=== PATIENT | female | born 1985 | race Caucasian/White ===

== ENCOUNTER 2018-09-21 15:56 | Emergency (ER) | payer OTHER ==
[2018-09-21 16:14] VITALS: RESP 16
[2018-09-21] MEDS ORDERED: SODIUM CHLORIDE 0.9% 1,000 ML IV STA (16:31)
[2018-09-21 16:55] LABS: Basophils % (A) 0 %; Eosinophils # (A) 0.2 k/uL (0-0.7); Eosinophils % (A) 2 %; HCT 43.6 % (34.0-46.0); HGB 15.1 gm/dL (11.4-16.0); Lymphocytes # (A) 0.3 k/uL (1.0-4.8); Lymphocytes % (A) 4 %; MCH 30.2 pg (25.0-35.0); MCHC 34.5 g/dL (31.0-37.0); MCV 87.4 fL (80.0-100.0); Mean Platelet Volume 7.8; Monocytes # (A) 0.2 k/uL (0-1.0); Monocytes % (A) 2 %; Neutrophils # (A) 8.4 k/uL (1.3-7.7); Neutrophils % (A) 91 %; Platelet Count 210 k/uL (150-450); RBC 4.99 m/uL (3.80-5.40); RDW 12.9 % (11.5-15.5); WBC 9.1 k/uL (3.8-10.6)
[2018-09-21 17:07] LABS: Appearance,Urine Cloudy (Clear); Bilirubin,Urine Negative (Negative); Blood,Urine Negative (Negative); Color,Urine Yellow; Glucose,Urine (UA) Negative (Negative); Hyaline Casts,Urine 1 /lpf (0-2); Ketones,Urine 4+ (Negative); Leukocyte Esterase,Urine Negative (Negative); Mucus,Urine Many /hpf; Nitrite,Urine Negative (Negative); Protein,Urine 1+ (Negative); RBC,Urine 4 /hpf (0-5); Specific Gravity,Urine 1.033 (1.001-1.035); Squamous Epithelial Cell,Urine 5 /hpf (0-4)
[2018-09-21 17:09] LABS: ALT 29 U/L (9-52); AST 30 U/L (14-36); Albumin 4.6 g/dL (3.5-5.0); Alkaline Phosphatase 56 U/L (38-126); Amylase 59 U/L (30-110); Anion Gap 12 mmol/L; Blood Urea Nitrogen 11 mg/dL (7-17); Calcium 9.8 mg/dL (8.4-10.2); Carbon Dioxide 23 mmol/L (22-30); Chloride 102 mmol/L (98-107); Glucose 100 mg/dL (74-99); Lipase 49 U/L (23-300); Sodium 137 mmol/L (137-145); Total Bilirubin 0.6 mg/dL (0.2-1.3); Total Protein 8.1 g/dL (6.3-8.2)
[2018-09-21] MEDS ORDERED: ACETAMINOPHEN TAB 500 MG TAB PO STA (17:11)
[2018-09-21] MEDS ORDERED: METOCLOPRAMIDE 5 MG/ML 2 ML VIAL IVP STA (17:12)
[2018-09-21] MEDS ORDERED: diphenhydrAMINE 50 MG/ML 1 ML VIAL IVP STA (17:12)
[2018-09-21 17:15] LABS: Potassium 4.2 mmol/L (3.5-5.1)
--- NOTE | 2018-09-21 17:16 | ED ---
Nausea/Vomiting/Diarrhea HPI - General Chief complaint: Nausea/Vomiting/Diarrhea Stated complaint: Vomiting, lightheaded Time Seen by Provider: 09/21/18 16:19 Source: patient, RN notes reviewed, old records reviewed Mode of arrival: ambulatory Limitations: no limitations - History of Present Illness Initial comments: Patient is a 33-year-old female who presents emergency Department today with complaints of nausea vomiting diarrhea for the past day. She was a low-grade fever. Her daughter has similar complaints. Patient has had a positive test the Patient wishes she is 9 weeks . She is supposed follow-up with Dr. Castro but has not followed up with him at this time. She denies any vaginal bleeding or discharge. She complains of some intermittent right lower quadrant pain prior to vomiting and diarrhea. Patient states that she's had no bloody emesis or stools. She denies a significant surgical history. - Related Data Home Medications Medication Instructions Recorded Confirmed Pnv,Calcium 72/Iron/Folic Acid 1 tab PO DAILY 09/09/15 09/21/18 [ Plus Tablet] Acetaminophen Tab [Tylenol Tab] 650 mg PO Q6H PRN 09/21/18 09/21/18 Previous Rx's Medication Instructions Recorded Metoclopramide [Reglan] 5 mg PO ACHS #15 tab 09/21/18 Allergies Allergy/AdvReac Type Severity Reaction Status Date / Time diphenhydramine HCl Allergy Swelling Verified 09/21/18 16:46 [From Benadryl] Review of Systems ROS Statement: Those systems with pertinent positive or pertinent negative responses have been documented in the HPI. ROS Other: All systems not noted in ROS Statement are negative. Past Medical History Additional Past Medical History / Comment(s): Cyst R ovary, hemangioma on tongue History of Any Multi-Drug Resistant Organisms: None Reported Additional Past Surgical History / Comment(s): Embroylization 03/2012, and 5 other times for tongue hemangioma Past Anesthesia/Blood Transfusion Reactions: No Reported Reaction Past Psychological History: Anxiety, Depression Smoking Status: Never smoker Past Alcohol Use History: None Reported Past Drug Use History: None Reported, Opiates - Past Family History Mother History Unknown: Yes Family Medical History: Cancer Additional Family Medical History / Comment(s): uterine cancer General Exam - General Exam Comments Initial Comments: Well appearing 33 year old female, no distress. Limitations: no limitations General appearance: alert, in no apparent distress Head exam: Present: atraumatic, normocephalic, normal inspection Eye exam: Present: normal appearance, PERRL, EOMI. Absent: scleral icterus, conjunctival injection, periorbital swelling ENT exam: Present: normal exam, mucous membranes moist Neck exam: Present: normal inspection. Absent: tenderness, meningismus, lymphadenopathy Respiratory exam: Present: normal lung sounds bilaterally. Absent: respiratory distress, wheezes, rales, rhonchi, stridor Cardiovascular Exam: Present: regular rate, normal rhythm, normal heart sounds. Absent: systolic murmur, diastolic murmur, rubs, gallop, clicks GI/Abdominal exam: Present: soft, normal bowel sounds. Absent: distended, tenderness, guarding, rebound, rigid Extremities exam: Present: normal inspection, full ROM, normal capillary refill. Absent: tenderness, pedal edema, joint swelling, calf tenderness Back exam: Present: normal inspection Neurological exam: Present: alert, oriented X3, CN II-XII intact Psychiatric exam: Present: normal affect, normal mood Skin exam: Present: warm, dry, intact, normal color. Absent: rash Course Vital Signs 09/21/18 09/21/18 09/21/18 16:11 16:39 18:30 Temperature 99.1 F 100.7 F H 98.9 F Pulse Rate 103 H 83 Respiratory 16 16 Rate Blood Pressure 98/57 94/62 O2 Sat by Pulse 97 99 Oximetry 09/21/18 18:56 Temperature 98.5 F Pulse Rate 92 Respiratory 16 Rate Blood Pressure 95/53 O2 Sat by Pulse 97 Oximetry Medical Decision Making - Medical Decision Making 33 year old female with one day of nausae, vomiting, and diarrhea. Patient is 9 weeks with mild RLQ pain. Patient has low grade fever. Daughter with similiar symptoms. Labs were completed and she was given IV reglan and fluids. Patient labs were unermarkble. UA shows ketones with dehydration. Patient US shows viable IUP, no vaginal bleeding. No signs of appendicitis. Patient will be DC with Rx for reglan. Discussed remaining hydrated. - Lab Data Result diagrams: 09/21/18 16:40 09/21/18 16:40 Lab Results 09/21/18 09/21/18 09/21/18 Range/Units 16:40 16:40 16:40 WBC 9.1 (3.8-10.6) k/uL RBC 4.99 (3.80-5.40) m/uL Hgb 15.1 (11.4-16.0) gm/dL Hct 43.6 (34.0-46.0) % MCV 87.4 (80.0-100.0) fL MCH 30.2 (25.0-35.0) pg MCHC 34.5 (31.0-37.0) g/dL RDW 12.9 (11.5-15.5) % Plt Count 210 (150-450) k/uL Neutrophils % 91 % Lymphocytes % 4 % Monocytes % 2 % Eosinophils % 2 % Basophils % 0 % Neutrophils # 8.4 H (1.3-7.7) k/uL Lymphocytes # 0.3 L (1.0-4.8) k/uL Monocytes # 0.2 (0-1.0) k/uL Eosinophils # 0.2 (0-0.7) k/uL Basophils # 0.0 (0-0.2) k/uL Sodium 137 (137-145) mmol/L Potassium 4.2 (3.5-5.1) mmol/L Chloride 102 (98-107) mmol/L Carbon Dioxide 23 (22-30) mmol/L Anion Gap 12 mmol/L BUN 11 (7-17) mg/dL Creatinine 0.48 L (0.52-1.04) mg/dL Est GFR (CKD-EPI)AfAm >90 (>60 ml/min/1.73 sqM) Est GFR (CKD-EPI)NonAf >90 (>60 ml/min/1.73 sqM) Glucose 100 H (74-99) mg/dL Calcium 9.8 (8.4-10.2) mg/dL Total Bilirubin 0.6 (0.2-1.3) mg/dL AST 30 (14-36) U/L ALT 29 (9-52) U/L Alkaline Phosphatase 56 (38-126) U/L Total Protein 8.1 (6.3-8.2) g/dL Albumin 4.6 (3.5-5.0) g/dL Amylase 59 (30-110) U/L Lipase 49 (23-300) U/L HCG, Quant mIU/mL Urine Color Urine Appearance (Clear) Urine pH (5.0-8.0) Ur Specific [place] (1.001-1.035) Urine Protein (Negative) Urine Glucose (UA) (Negative) Urine Ketones (Negative) Urine Blood (Negative) Urine Nitrite (Negative) Urine Bilirubin (Negative) Urine Urobilinogen (<2.0) mg/dL Ur Leukocyte Esterase (Negative) Urine RBC (0-5) /hpf Urine WBC (0-5) /hpf Ur Squamous Epith Cells (0-4) /hpf Hyaline Casts (0-2) /lpf Urine Mucus (None) /hpf Influenza Type A RNA Not Detected (Not Detectd) Influenza Type B (PCR) Not Detected (Not Detectd) Blood Type Blood Type Recheck 09/21/18 09/21/18 09/21/18 Range/Units 16:40 16:40 17:25 WBC (3.8-10.6) k/uL RBC (3.80-5.40) m/uL Hgb (11.4-16.0) gm/dL Hct (34.0-46.0) % MCV (80.0-100.0) fL MCH (25.0-35.0) pg MCHC (31.0-37.0) g/dL RDW (11.5-15.5) % Plt Count (150-450) k/uL Neutrophils % % Lymphocytes % % Monocytes % % Eosinophils % % Basophils % % Neutrophils # (1.3-7.7) k/uL Lymphocytes # (1.0-4.8) k/uL Monocytes # (0-1.0) k/uL Eosinophils # (0-0.7) k/uL Basophils # (0-0.2) k/uL Sodium (137-145) mmol/L Potassium (3.5-5.1) mmol/L Chloride (98-107) mmol/L Carbon Dioxide (22-30) mmol/L Anion Gap mmol/L BUN (7-17) mg/dL Creatinine (0.52-1.04) mg/dL Est GFR (CKD-EPI)AfAm (>60 ml/min/1.73 sqM) Est GFR (CKD-EPI)NonAf (>60 ml/min/1.73 sqM) Glucose (74-99) mg/dL Calcium (8.4-10.2) mg/dL Total Bilirubin (0.2-1.3) mg/dL AST (14-36) U/L ALT (9-52) U/L Alkaline Phosphatase (38-126) U/L Total Protein (6.3-8.2) g/dL Albumin (3.5-5.0) g/dL Amylase (30-110) U/L Lipase (23-300) U/L HCG, Quant 462869.0 mIU/mL Urine Color Yellow Urine Appearance Cloudy H (Clear) Urine pH 6.0 (5.0-8.0) Ur Specific [place] 1.033 (1.001-1.035) Urine Protein 1+ H (Negative) Urine Glucose (UA) Negative (Negative) Urine Ketones 4+ H (Negative) Urine Blood Negative (Negative) Urine Nitrite Negative (Negative) Urine Bilirubin Negative (Negative) Urine Urobilinogen 2.0 (<2.0) mg/dL Ur Leukocyte Esterase Negative (Negative) Urine RBC 4 (0-5) /hpf Urine WBC 3 (0-5) /hpf Ur Squamous Epith Cells 5 H (0-4) /hpf Hyaline Casts 1 (0-2) /lpf Urine Mucus Many H (None) /hpf Influenza Type A RNA (Not Detectd) Influenza Type B (PCR) (Not Detectd) Blood Type O Positive Blood Type Recheck [facility] ONLY - Radiology Data Radiology results: report reviewed Getting process seen on OB ultrasound. Viable IUP with heart rate of 170 beats were minute. Probable corpus luteal cyst in the right ovary measuring 1.6 x 1.3. No appendix seen. No cystic or solid mass identified. Disposition Clinical Impression: Gastroenteritis, 10 weeks gestation of , Dehydration Disposition: HOME SELF-CARE Condition: Good Instructions (If sedation given, give patient instructions): Gastroenteritis (ED), Acute Nausea and Vomiting (ED) Additional Instructions: Patient advised use nausea medicine and take Tylenol for fevers. Patient should have close follow-up with primary care provider and REEL WINDER. Return to emergency department if any alarming signs or symptoms occur. Prescriptions: Metoclopramide [Reglan] 5 mg PO ACHS #15 tab Is patient prescribed a controlled substance at d/c from ED?: No Referrals: None,Stated [Primary Care Provider] - 1-2 days Diana Bennett MD [STAFF PHYSICIAN] - 1-2 days Time of Disposition: 18:40
--- NOTE | 2018-09-21 18:17 | US ---
EXAMINATION TYPE: US abdomen APPY DATE OF EXAM: 09/21/2018 COMPARISON: NONE CLINICAL HISTORY: Pain. RLQ pain APPENDIX AP Diameter (normal < 6mm): Not visualized Measured outer wall to outer wall. Is the appendix seen in its entirety from the proximal cecum to distal end: No. The appendix is not visualized on this exam. There is a moderate amount of peristalsing bowel visualized in the right low er quadrant that limits the exam IMPRESSION: Appendix not seen. No solid or cystic mass identified. No free fluid.
--- NOTE | 2018-09-21 18:19 | US ---
EXAMINATION TYPE: Transabdominal DATE OF EXAM: 09/21/2018 5:51 PM COMPARISON: NONE CLINICAL HISTORY: Pain. RLQ pain EXAM PERFORMED: Transabdominal (TA) EXAM MEASUREMENTS: GESTATIONAL AGE / DATING Physician Established: Not yet established Dates by LMP: (10 weeks/1 days) EDC: 04/18/2019 Dates by First Scan: No previous this is first scan Dates by Current Scan for: (10 weeks/0 days) EDC: 04/19/2019 MATERNAL ANATOMY Uterus: 9.9 x 7.8 x 8.5 cm Right Ovary: 2.9 x 1.9 x 2.4 cm Left Ovary: 2.3 x 1.1 x 2.0 cm Post CDS / Adnexa: wnl as visualized. Moderate amount of peristalsing bowel visualized bilaterally Presence of free fluid: No Presence of corpus luteal cyst: yes, right ovary measuring 1.6 x 1.3 x 2.4 cm Presence of subchorionic bleed: No GESTATION / SURVEY CRL: 3.1 cm (10 weeks/0 days) Yolk Sac (normal less than 6mm): 5 mm Heart Rate: 178 bpm Rhythm: Upper limits of normal IUP: Viable IUP Date of LMP: 07/12/2018 Beta HcG (if available): Not available at this time Viable IUP, measurements consistent with dates. Probable corpus luteal cyst right ovary measuring 1.6 x 1.3 x 2.4 cm IMPRESSION: No complicating process seen.
[2018-09-21 18:57] VITALS: BP 95/53; PULSE 92; TEMP 98.5
== END 2018-09-21 18:56 | disposition home or self-care (01) ==
LOC: EC 15:56
DX: O99.611 Diseases of the digestive system complicating pregnancy, first trimester (principal); K52.9 Noninfective gastroenteritis and colitis, unspecified; Z87.448 Personal history of other diseases of urinary system; Z53.8 Procedure and treatment not carried out for other reasons; Z88.8 Allergy status to other drugs, medicaments and biological substances; Z3A.10 10 weeks gestation of pregnancy
CPT/HCPCS: 36415; 86900; 86901; 80053; 82150; 83690; 85025; 81001; 84702; 87502; 76705; 76801; 99284; 96374; 96361; J2765

== ENCOUNTER 2019-03-28 12:07 | Outpatient (CLI) | payer OTHER ==
[2019-03-28 12:23] VITALS: BP 120/72; PULSE 93; RESP 18; TEMP 97.6
--- NOTE | 2019-03-28 13:32 | US ---
EXAMINATION TYPE: US OB BPP wo non-stress DATE OF EXAM: 03/28/2019 COMPARISON: NONE CLINICAL HISTORY: Physician order. BBP BREE EXAM PERFORMED: Transabdominal (TA) BPP PARAMETERS: PRESENTATION: Vertex LIE: Longitudinal?? HEART RATE: 140 bpm RHYTHM: Normal BREE: 9.9cm DIAPHRAGM IMAGED: Yes BPP SCORIN. Breathin (1 episode of breathing of 30 second duration in 30 minutes of scanning time) 2. Movement: 2 (at least 3 discrete body movements in 30 minutes) 3. Tone: 2 (1 episode of active flexion/extension of limb) 4. BREE: 2 (BREE index > 5cm) IMPRESSION: TOTAL SCORE: 8 / 8
== END 2019-03-28 13:15 | disposition home or self-care (01) ==
LOC: FBPOP 12:07
PROVIDERS: ATTEND Obstetrics & Gynecology
DX: O75.89 Other specified complications of labor and delivery (principal)
CPT/HCPCS: 59025; 76819

== ENCOUNTER 2019-04-05 15:34 | Outpatient (CLI) | payer OTHER ==
--- NOTE | 2019-04-05 17:01 | US ---
EXAMINATION TYPE: US OB BPP wo non-stress DATE OF EXAM: 04/05/2019 COMPARISON: NONE CLINICAL HISTORY: advanced maternal age. EXAM PERFORMED: Transabdominal (TA) BPP PARAMETERS: PRESENTATION: Vertex HEART RATE: 156 bpm RHYTHM: Normal BREE: 10.0 DIAPHRAGM IMAGED: BPP SCORIN. Breathin (1 episode of breathing of 30 second duration in 30 minutes of scanning time) 2. Movement: 2 (at least 3 discrete body movements in 30 minutes) 3. Tone: 2 (1 episode of active flexion/extension of limb) 4. BREE: 10.0 (BREE index > 5cm) TOTAL SCORE: 8 / 8 Biophysical profile score is normal.
[2019-04-05 19:57] VITALS: BP 117/71; RESP 16; TEMP 98
== END 2019-04-05 16:45 | disposition home or self-care (01) ==
LOC: FBPOP 15:34
PROVIDERS: ATTEND Obstetrics & Gynecology
DX: O09.523 Supervision of elderly multigravida, third trimester (principal); Z3A.37 37 weeks gestation of pregnancy
CPT/HCPCS: 59025; 76819

== ENCOUNTER 2019-04-13 09:19 | Inpatient (IN) | payer OTHER ==
[2019-04-13] MEDS ORDERED: METHYLERGONOVINE 0.2 MG/ML 1 ML AMP IM PRN (09:50)
[2019-04-13] MEDS ORDERED: CARBOPROST TROMETHAMINE 250 MCG/ML 1 ML AMP IM PRN (09:50)
[2019-04-13] MEDS ORDERED: OXYTOCIN 10 UNIT/ML 1 ML VIAL IM PRN (09:50)
[2019-04-13] MEDS ORDERED: TERBUTALINE 1 MG/ML VIAL SQ PRN (09:50)
[2019-04-13] MEDS ORDERED: LIDOCAINE 0.5% (PF) 5 MG/ML (50 ML SDV) SQ PRN (09:50)
[2019-04-13] MEDS ORDERED: LACTATED RINGERS 1,000 ML IV SCH (10:00)
[2019-04-13 10:07] LABS: Basophils # (A) 0.1 k/uL (0-0.2); Basophils % (A) 1 %; Eosinophils # (A) 0.4 k/uL (0-0.7); Eosinophils % (A) 3 %; HCT 40.9 % (34.0-46.0); HGB 14.1 gm/dL (11.4-16.0); Lymphocytes # (A) 2.8 k/uL (1.0-4.8); Lymphocytes % (A) 19 %; MCH 30.2 pg (25.0-35.0); MCHC 34.5 g/dL (31.0-37.0); MCV 87.6 fL (80.0-100.0); Mean Platelet Volume 8.9; Monocytes # (A) 0.6 k/uL (0-1.0); Monocytes % (A) 4 %; Neutrophils # (A) 10.6 k/uL (1.3-7.7); Neutrophils % (A) 72 %; Platelet Count 194 k/uL (150-450); RBC 4.67 m/uL (3.80-5.40); RDW 12.7 % (11.5-15.5); WBC 14.8 k/uL (3.8-10.6)
[2019-04-13 10:23] VITALS: BMI 26.7
[2019-04-13] MEDS ORDERED: BUTORPHANOL 1 MG/ML 1 ML VIAL IV PRN (10:34)
[2019-04-13] MEDS ORDERED: LANOLIN CREAM 5 GM TUBE TOPICAL PRN (11:40)
[2019-04-13] MEDS ORDERED: diphenhydrAMINE 50 MG CAP PO PRN (11:40)
[2019-04-13] MEDS ORDERED: BENZOCAINE/MENTHOL SPRAY 1 GM/SPRAY AEROSOL TOPICAL PRN (11:40)
[2019-04-13] MEDS ORDERED: diphenhydrAMINE 25 MG CAP PO PRN (11:40)
[2019-04-13] MEDS ORDERED: ACETAMINOPHEN TAB 325 MG TAB PO PRN (11:40)
[2019-04-13] MEDS ORDERED: diphenhydrAMINE 50 MG/ML 1 ML VIAL IVP PRN ×2 (11:40)
[2019-04-13] MEDS ORDERED: SIMETHICONE 80 MG CHEWABLE PO PRN (11:40)
[2019-04-13] MEDS ORDERED: HYDROCORTISONE 2.5% RECTAL CREAM 30 GM TUBE RECTAL PRN (11:40)
[2019-04-13] MEDS ORDERED: HYDROcodone/APAP 5-325MG 1 EACH TAB PO PRN (11:40)
[2019-04-13] MEDS ORDERED: ZOLPIDEM 5 MG TAB PO PRN (11:40)
[2019-04-13] MEDS ORDERED: WITCH HAZEL 1 EACH MED..PAD TOPICAL PRN (11:40)
--- NOTE | 2019-04-13 11:43 | P.HPOB ---
History of Present Illness H&P Date: 04/13/19 Chief Complaint: Intrauterine at term: Active labor Deloris is a 34-year-old at 38 weeks gestation arise in active labor making cervical change. Initially dilated to 5-1/2 cm with category 1 tracing. Her Precis course has been, K by advanced maternal age for which she was receiving nonstress tests and biophysical profiles in the last several weeks of the . She had one episode of brown spotting approximately 19 weeks but no other significant competitions or concerns. Pertinent labs include O+ blood type, Rh antibody was negative, rubella immune, hepatitis B surface antigen/RPR/GBS were all negative. She relates that she began having contr actions approximately 7 AM and previously she been dilated to 4 cm. Intention is to have an epidural for analgesia. However, she rapidly progressed to 7 cm and therefore 1 of Stadol was provided IV. Past Medical History Past Medical History: No Reported History Additional Past Medical History / Comment(s): Cyst R ovary, hemangioma on tongue History of Any Multi-Drug Resistant Organisms: None Reported Additional Past Surgical History / Comment(s): Embroylization 03/2012, and 5 ot her times for tongue hemangioma Past Anesthesia/Blood Transfusion Reactions: No Reported Reaction Past Psychological History: Anxiety, Depression Smoking Status: Never smoker Past Alcohol Use History: None Reported Past Drug Use History: None Reported, Opiates Additional Drug Use History / Comment(s): history of oxycontin use, last use end of June, used for several months before - Past Family History Mother History Unknown: Yes Family Medical History: Cancer Additional Family Medical History / Comment(s): uterine cancer Medications and Allergies Home Medications Medication Instructions Recorded Confirmed Type Pnv,Calcium 72/Iron/Folic Acid 1 tab PO DAILY 09/09/15 04/13/19 History [ Plus Tablet] Acetaminophen Tab [Tylenol Tab] 650 mg PO Q6H PRN 09/21/18 04/13/19 History Allergies Allergy/AdvReac Type Severity Reaction Status Date / Time diphenhydramine HCl Allergy Intermediate Swelling Verified 04/13/19 09:49 [From Benadryl] Exam Osteopathic Statement: *. No significant issues noted on an osteopathic structural exam other than those noted in the History and Physical/Consult. Vital Signs Temp Pulse Resp BP 04/13/19 09:49 98.5 F 98 16 125/62 Intake and Output 04/12/19 04/13/19 04/13/19 22:59 06:59 14:59 Other: Weight 70.76 kg Significant dental caries - OBG Physical Exam Breast: both: normal (no masses) Abdomen: bowel sounds normal, no diffuse tenderness, no bruit present, no guarding noted, no hepatomegaly, no splenomegaly, no mass Vulva: both: normal Vagina: normal moisture, no discharge Cervix: no lesion, no discharge Uterus: normal size, normal contour Adnexa: both: normal Anus/Rectum: normal perianal skin, no rectal mass, no hemorrhoids, heme negative Results Result Diagrams: 04/13/19 09:45 Abnormal Lab Results - Last 24 Hours (Table) 04/13/19 Range/Units 09:45 WBC 14.8 H (3.8-10.6) k/uL Neutrophils # 10.6 H (1.3-7.7) k/uL
--- NOTE | 2019-04-13 11:44 | P.PROBDLV ---
Vaginal Delivery Note - . Vaginal Delivery Note: Deloris progressed complete and pushing with spontaneous vaginal delivery of a viable female over secondary midline laceration. Following delivery of the head a nuchal cord 1 was noted and easily reduced with the baby delivering from right occiput anterior position. Once was completed anterior posterior shoulders were easily delivered with gentle downward upper traction followed by the remainder the baby. Mouth nares were then bulb suctioned and baby was placed on mother's abdomen where the umbilical cord was clamped cut usual fashion an nursery personnel was present to assume care. Placenta was allowed to pulsate for 30 seconds. As completed placenta was then delivered intact and Pitocin was added to the IV. Second-degree midline laceration was then repaired in usual fashion with 3-0 Vicryl following 1% Xylocaine for analgesia. scores were 8 and 9 at one and 5 minutes respectively weight was 7 lbs. 10 oz. and both mother and baby are stable following delivery.
[2019-04-13] MEDS ORDERED: OXYTOCIN 20 UNITS/1000 ML NS 1,000 ML IV SCH (11:45)
[2019-04-13] MEDS: IBUPROFEN 600 MG TAB PO PRN ×2 (13:31→23:22)
[2019-04-13 21:11] VITALS: RESP 16
[2019-04-13] MEDS: SENNOSIDES-DOCUSATE SODIUM 1 EACH TAB PO SCH (21:12)
[2019-04-14 07:08] LABS: Basophils # (A) 0.1 k/uL (0-0.2); Basophils % (A) 1 %; Eosinophils # (A) 0.4 k/uL (0-0.7); Eosinophils % (A) 2 %; HCT 30.6 % (34.0-46.0); Lymphocytes # (A) 2.7 k/uL (1.0-4.8); Lymphocytes % (A) 17 %; MCH 31.7 pg (25.0-35.0); MCHC 35.9 g/dL (31.0-37.0); MCV 88.5 fL (80.0-100.0); Mean Platelet Volume 8.1; Monocytes # (A) 0.6 k/uL (0-1.0); Monocytes % (A) 4 %; Neutrophils % (A) 75 %; Platelet Count 177 k/uL (150-450); RBC 3.45 m/uL (3.80-5.40); RDW 12.6 % (11.5-15.5)
[2019-04-14 09:13] VITALS: BP 108/71; PULSE 88; TEMP 97.9
[2019-04-14] MEDS: SENNOSIDES-DOCUSATE SODIUM 1 EACH TAB PO SCH (09:40)
--- NOTE | 2019-04-14 11:18 | P.DS ---
Providers Date of admission: 04/13/19 09:32 Expected date of discharge: 04/14/19 Attending physician: Mansoor Odell Primary care physician: Stated None Hospital Course: Deloris is doing very well day 1. She is involuting, voiding and tolerating her diet. She voices no complaints. Vital signs are stable and afebrile. Heart regular, lungs clear, extremities without pain. Abdomen soft and nontender with the uterus that is firm below the umbilicus. Lochia is reported be light. Assessment post Mon day 1. Plan discharged home follow up with me in 6 weeks. Discharge instructions were thoroughly reviewed and all questions were answered for her prior to discharge. Prescriptions for Motrin was 4 into her pharmacy. She is stable for discharge at this time. Patient Condition at Discharge: Good Plan - Discharge Summary New Discharge Prescriptions: New Ibuprofen [Motrin] 600 mg PO Q6HR PRN #30 tab PRN Reason: Pain No Action Pnv,Calcium 72/Iron/Folic Acid [ Plus Tablet] 1 tab PO DAILY Acetaminophen Tab [Tylenol Tab] 650 mg PO Q6H PRN PRN Reason: Pain Discharge Medication List Pnv,Calcium 72/Iron/Folic Acid [ Plus Tablet] 1 tab PO DAILY 09/09/15 [History] Acetaminophen Tab [Tylenol Tab] 650 mg PO Q6H PRN 09/21/18 [History] Ibuprofen [Motrin] 600 mg PO Q6HR PRN #30 tab 04/14/19 [Rx] Follow up Appointment(s)/Referral(s): Mansoor Odell DO [Doctor of Osteopathic Medicine] - 6 Weeks Activity/Diet/Wound Care/Special Instructions: No heavy lifting, limit stairs and driving, and pelvic rest. If any high temperatures, heavy bleeding, or severe pain call my office Discharge Disposition: HOME SELF-CARE
[2019-04-14] MEDS: IBUPROFEN 600 MG TAB PO PRN (12:10)
== END 2019-04-14 13:50 | disposition home or self-care (01) | DRG 807 ==
LOC: FBPOP 09:19 → 4FBP 09:32
PROVIDERS: ADMIT Obstetrics & Gynecology; ATTEND Obstetrics & Gynecology
PROC: 10E0XZZ Delivery of Products of Conception, External Approach (ICD-10-PCS; principal; 2019-04-13)
PROC: 0KQM0ZZ Repair Perineum Muscle, Open Approach (ICD-10-PCS; 2019-04-13)
DX: O69.81X0 Labor and delivery complicated by cord around neck, without compression, not applicable or unspecified (principal); Z37.0 Single live birth; O99.89 Other specified diseases and conditions complicating pregnancy, childbirth and the puerperium; K02.9 Dental caries, unspecified; O34.83 Maternal care for other abnormalities of pelvic organs, third trimester; N83.201 Unspecified ovarian cyst, right side; O70.1 Second degree perineal laceration during delivery; Z86.59 Personal history of other mental and behavioral disorders; Z3A.38 38 weeks gestation of pregnancy; Z88.8 Allergy status to other drugs, medicaments and biological substances; Z80.49 Family history of malignant neoplasm of other genital organs
CPT/HCPCS: 85025; 86850; 86900; 86901

== ENCOUNTER → 2019-07-22 | Day surgery (SDC) | payer OTHER ==
[2019-07-19 14:30] VITALS: BMI 24.0
[~2019-07-22] MED LIST: BUPIVACAINE (PF) 0.25% 30 ML VIAL SQ ONE; DEXAMETHASONE SOD PHOSPHATE 10 MG/ML 1 ML VIAL IV ONE; GLYCOPYRROLATE 0.2 MG/ML 2 ML VIAL ONE; HYDROcodone/APAP 5-325MG 1 EACH TAB PO ONE; KETOROLAC 30 MG/ML 1 ML VIAL ONE; LACTATED RINGERS 1,000 ML IV ONE; LACTATED RINGERS 1,000 ML IV SCH; LIDOCAINE 1% 20 ML VIAL (10MG/ML) FOR IV START INTRADERMA ONE; LIDOCAINE 1% INJ 10MG/ML (20 ML MDV) ONE; MIDAZOLAM 2 MG/2 ML VIAL IV PRN; MIDAZOLAM 2 MG/2 ML VIAL ONE; NEOSTIGMINE 1 MG/ML 10 ML VIAL ONE; ONDANSETRON 4 MG/2 ML VIAL IVP ONE; PROPOFOL 10 MG/ML 20 ML VIAL IV ONE; Pre Op ABX Message 1 EACH MISC MISCELLANE ONE; ROCURONIUM BROMIDE 10 MG/ML 10 ML VIAL IV ONE; SCOPOLAMINE 1.5MG/72HR PATCH TRANSDERM ONE; SUCCINYLCHOLINE CHLORIDE 100 MG/5 ML SYR IV ONE; fentaNYL (PF) 50 MCG/ML 2 ML AMP ONE
--- NOTE | 2019-07-22 08:12 | P.HPOB ---
History of Present Illness H&P Date: 07/22/19 Chief Complaint: Family planning Deloris has completed her family planning and desires permanent sterilization. Risks/benefits/alternatives to a laparoscopic tubal occlusion with the scopes were reviewed with patient in detail and all questions were answered for her prior to proceeding to the operating room. She is aware that this procedure is designed to be permanent and carries a low approximately 4 per thousand failure rate. All other questions are answered for her prior to proceeding to the operative room. 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 Past Anesthesia/Blood Transfusion Reactions: No Reported Reaction Smoking Status: Never smoker - Past Family History Mother History Unknown: Yes Family Medical History: Cancer Additional Family Medical History / Comment(s): uterine cancer Medications and Allergies Home Medications Medication Instructions Recorded Confirmed Type Pnv,Calcium 72/Iron/Folic Acid 1 tab PO DAILY 09/09/15 07/22/19 History [ Plus Tablet] Acetaminophen Tab [Tylenol Tab] 650 mg PO Q6H PRN 09/21/18 07/22/19 History Ibuprofen [Motrin] 600 mg PO Q6HR PRN #30 tab 04/14/19 07/22/19 Rx HYDROcodone/APAP 5-325MG [[place] 1 tab PO Q4HR PRN #30 tab 07/22/19 Rx 5-325] Ibuprofen [Motrin] 600 mg PO Q6HR PRN #30 tab 07/22/19 Rx Allergies Allergy/AdvReac Type Severity Reaction Status Date / Time diphenhydramine HCl Allergy Intermediate Swelling Verified 07/22/19 06:46 [From Benadryl] Exam Osteopathic Statement: *. No significant issues noted on an osteopathic structural exam other than those noted in the History and Physical/Consult. Vital Signs Temp Pulse Resp BP Pulse Ox 07/22/19 06:54 98.0 F 72 18 109/63 98 Intake and Output 07/21/19 07/22/19 07/22/19 22:59 06:59 14:59 Intake Total 500 Output Total 24 Balance 476 Intake: IV 500 Output: Urine 20 Estimated Blood Loss 4 Other: Weight 58 kg - OBG Physical Exam Breast: both: normal (no masses) Abdomen: bowel sounds normal, no diffuse tenderness, no bruit present, no guarding noted, no hepatomegaly, no splenomegaly, no mass Vulva: both: normal Vagina: normal moisture, no discharge Cervix: no lesion, no discharge Uterus: normal size, normal contour Adnexa: both: normal Anus/Rectum: normal perianal skin, no rectal mass, no hemorrhoids, heme negative
--- NOTE | 2019-07-22 08:15 | P.OP ---
Date of Procedure: 07/22/19 Preoperative Diagnosis: Family planning Postoperative Diagnosis: Same Procedure(s) Performed: Laparoscopic tubal occlusion with Filshie clips Anesthesia: LOY Surgeon: Mansoor Odell Estimated Blood Loss (ml): 4 IV fluids (ml): 300 Urine output (ml): 20 Pathology: none sent Condition: stable Disposition: same day Operative Findings: Normal female pelvic anatomy Description of Procedure: Deloris was taken to the operating suite where general anesthetic was found be adequate. She was prepped and draped in the normal sterile fashion and placed in the dorsal lithotomy position. Initially a speculum was inserted into the vagina and the anterior lip of the cervix identified and grasped with single- tooth tenaculum. Uterus was then sounded to 8 cm and a manipulator was inserted without difficulty. Red rubber catheter was used to drain the bladder of urine and other instruments removed. Attention was then turned to the abdominal portion of the procedure where 3 mL of quarter percent Marcaine was injected periumbilically. Through this injected anesthetic a 5 mm skin incision was made and through this incision under direct visualization with an optical trocar and sleeve the camera was inserted. Once peritoneal placement was assured gas was allowed to fully insufflate the abdomen and patient was then placed in steep Trendelenburg position. A second 8 mm skin incision was then made 3 cm above the pubic symphysis in the midline. Through this incision again under direct visualization the second port and sleeve were inserted. Observations pelvis were then done. First the right fallopian tube than left fallopian tube had a Filshie clip applied 2 cm from uterine cornu. No bleeding is noted in the mesosalpinx. All instruments were then removed and gas was allowed to expel from the abdomen. 5 deep breaths were provided during this process. 4-0 Vicryl was then used to close incision subcuticular E and the remaining 7 mL of quarter percent Marcaine was injected around these incisions. Once completed instruments were removed from the vagina. Sponge, lap, needle counts were all correct 2. Patient was then taken to the recovery room in stable and satisfactory condition. Plan - Discharge Summary Discharge Rx Participant: Yes New Discharge Prescriptions: New Ibuprofen [Motrin] 600 mg PO Q6HR PRN #30 tab PRN Reason: Pain HYDROcodone/APAP 5-325MG [[place] 5-325] 1 tab PO Q4HR PRN #30 tab PRN Reason: Pain No Action Pnv,Calcium 72/Iron/Folic Acid [ Plus Tablet] 1 tab PO DAILY Acetaminophen Tab [Tylenol Tab] 650 mg PO Q6H PRN PRN Reason: Pain Ibuprofen [Motrin] 600 mg PO Q6HR PRN #30 tab PRN Reason: Pain Discharge Medication List Pnv,Calcium 72/Iron/Folic Acid [ Plus Tablet] 1 tab PO DAILY 09/09/15 [History] Acetaminophen Tab [Tylenol Tab] 650 mg PO Q6H PRN 09/21/18 [History] Ibuprofen [Motrin] 600 mg PO Q6HR PRN #30 tab 04/14/19 [Rx] HYDROcodone/APAP 5-325MG [[place] 5-325] 1 tab PO Q4HR PRN #30 tab 07/22/19 [Rx] Ibuprofen [Motrin] 600 mg PO Q6HR PRN #30 tab 07/22/19 [Rx] Activity/Diet/Wound Care/Special Instructions: , Limit stairs and driving today, pelvic rest. If any high temperatures, heavy bleeding, or severe pain call my office
[2019-07-22] MEDS: HYDROmorphone 0.5 MG/0.5 ML SYRINGE IVP PRN ×6 (08:24→09:00)
[2019-07-22 08:31] VITALS: TEMP 97.1
[2019-07-22] MEDS: fentaNYL (PF) 50 MCG/ML 2 ML AMP IVP ONE ×2 (08:33→08:37)
[2019-07-22 08:48] VITALS: RESP 16
[2019-07-22 11:44] VITALS: BP 135/69; PULSE 74
== END ==
LOC: OR 06:28
PROVIDERS: ATTEND Obstetrics & Gynecology
DX: Z30.2 Encounter for sterilization (principal); Z88.8 Allergy status to other drugs, medicaments and biological substances; Z80.49 Family history of malignant neoplasm of other genital organs; D18.09 Hemangioma of other sites
CPT/HCPCS: 81025; 58671; J2250; J1100; J2710; J2405; J2001; J3010; J1885; J0330; J2704; J1170

== ENCOUNTER 2020-01-20 14:37 | Emergency (ER) | payer OTHER ==
[2020-01-20 14:46] VITALS: BP 102/70; PULSE 78; RESP 18; TEMP 98.3
--- NOTE | 2020-01-20 15:18 | ED ---
ENT HPI - General Chief complaint: Dental/Oral Stated complaint: Dental Pain Time Seen by Provider: 01/20/20 14:48 Source: patient, RN notes reviewed, old records reviewed Mode of arrival: ambulatory Limitations: no limitations - History of Present Illness Initial comments: Disposition 34-year-old female presents emergency room today with left-sided low er dental pain. She reports that she's developed an abscess. She is reports that she started having the pain week ago and was started on amoxicillin 500 twice a day. Patient reports that she does have an upcoming appointment with a dentist on the January 28. She states her fevers or chills. Denies trismus. - Related Data Home Medications Medication Instructions Recorded Confirmed Pnv,Calcium 72/Iron/Folic Acid 1 tab PO DAILY 09/09/15 07/22/19 [ Plus Tablet] Acetaminophen Tab [Tylenol Tab] 650 mg PO Q6H PRN 09/21/18 07/22/19 Previous Rx's Medication Instructions Recorded Ibuprofen [Motrin] 600 mg PO Q6HR PRN #30 tab 04/14/19 HYDROcodone/APAP 5-325MG [[place] 1 tab PO Q4HR PRN #30 tab 07/22/19 5-325] Ibuprofen [Motrin] 600 mg PO Q6HR PRN #30 tab 07/22/19 Clindamycin [Cleocin] 450 mg PO TID #90 capsule 01/20/20 Allergies Allergy/AdvReac Type Severity Reaction Status Date / Time diphenhydramine HCl Allergy Intermediate Swelling Verified 01/20/20 14:46 [From Benadryl] Review of Systems ROS Statement: Those systems with pertinent positive or pertinent negative responses have been documented in the HPI. ROS Other: All systems not noted in ROS Statement are negative. 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 Past Anesthesia/Blood Transfusion Reactions: No Reported Reaction Past Psychological History: No Psychological Hx Reported Past Alcohol Use History: None Reported Past Drug Use History: None Reported, Opiates - Past Family History Mother History Unknown: Yes Family Medical History: Cancer Additional Family Medical History / Comment(s): uterine cancer General Exam - General Exam Comments Initial Comments: 34-year-old female presents emergency department for dental pain. Alert and oriented. No acute distress. Limitations: no limitations General appearance: alert, in no apparent distress Head exam: Present: atraumatic, normocephalic, normal inspection Eye exam: Present: normal appearance, PERRL, EOMI. Absent: scleral icterus, conjunctival injection, periorbital swelling ENT exam: Present: normal exam, mucous membranes moist, other (Patient has swelling of the left lower jaw. Patient has appearance of infection and irritation around tooth #19 and 20. No drainable abscess at this time.) Neck exam: Present: normal inspection. Absent: tenderness, meningismus, lymphadenopathy Respiratory exam: Present: normal lung sounds bilaterally. Absent: respiratory distress, wheezes, rales, rhonchi, stridor Cardiovascular Exam: Present: regular rate Course Vital Signs 01/20/20 14:43 Temperature 98.3 F Pulse Rate 78 Respiratory 18 Rate Blood Pressure 102/70 O2 Sat by Pulse 99 Oximetry Medical Decision Making - Medical Decision Making 34-year-old female since returned today with left-sided lower dental pain. She has evidence of gingival erythema around tooth #19 and 20. There is no drainable abscess at this time. She does have some swelling of the left lower jaw externally. No trismus. No involvement of the neck at this time. I discussed Patient needs to follow-up with dentist. She has upcoming appointment next week. We'll start the Patient on clindamycin. SENSORY RETURN PARAMETERS WERE DISCUSSED. Disposition Clinical Impression: Dental infection Disposition: HOME SELF-CARE Condition: Good Instructions (If sedation given, give patient instructions): Dental Abscess (ED), Toothache (ED) Additional Instructions: [facility] [address] [place] [address] [phone] (existing clients only) For new clients: [phone] 1st consult: $50 (includes Xrays) Usually 30% less then private dentist for visits after. [employer] Have to pay $50 for Xrays anmd rest is covered. [phone] Prescriptions: Clindamycin [Cleocin] 450 mg PO TID #90 capsule Is patient prescribed a controlled substance at d/c from ED?: No Referrals: None,Stated [Primary Care Provider] - 1-2 days Time of Disposition: 15:17
[2020-01-20] MEDS ORDERED: ACET/COD 300 MG/30 MG STARTER PACK 6 TAB BTL PO STA (15:19)
[2020-01-20] MEDS ORDERED: CLINDAMYCIN 150 MG CAP PO STA (15:19)
== END 2020-01-20 15:27 | disposition home or self-care (01) ==
LOC: EC 14:37
DX: K04.7 Periapical abscess without sinus (principal); Z88.8 Allergy status to other drugs, medicaments and biological substances
CPT/HCPCS: 99283

== ENCOUNTER 2020-07-07 12:48 | Emergency (ER) | payer OTHER ==
[2020-07-07 13:03] VITALS: BP 106/63; PULSE 88; RESP 18; TEMP 98.8
[2020-07-07] MEDS ORDERED: ACET/COD 300 MG/30 MG STARTER PACK 6 TAB BTL PO STA (13:12)
[2020-07-07] MEDS ORDERED: PENICILLIN VK 500MG STARTER 4 TAB BTL PO STA (13:12)
--- NOTE | 2020-07-07 13:17 | ED ---
General Adult HPI - General Chief complaint: Dental/Oral Stated complaint: dental pain Time Seen by Provider: 07/07/20 13:05 Source: patient, RN notes reviewed Mode of arrival: ambulatory Limitations: no limitations - History of Present Illness Initial comments: Patient is a pleasant 35-year-old female presenting to the emergency department with complaints of dental pain. Patient does have some chronic dental problems however has been worse with the past 2-3 days. Mild swelling left lower. Patient does have history of similar symptoms previously. Patient called her dentist and primary care physician however was unable to get into either one of them. No fever. No dyspnea. - Related Data Home Medications Medication Instructions Recorded Confirmed Pnv,Calcium 72/Iron/Folic Acid 1 tab PO DAILY 09/09/15 07/22/19 [ Plus Tablet] Acetaminophen Tab [Tylenol Tab] 650 mg PO Q6H PRN 09/21/18 07/22/19 Previous Rx's Medication Instructions Recorded Ibuprofen [Motrin] 600 mg PO Q6HR PRN #30 tab 04/14/19 HYDROcodone/APAP 5-325MG [[place] 1 tab PO Q4HR PRN #30 tab 07/22/19 5-325] Ibuprofen [Motrin] 600 mg PO Q6HR PRN #30 tab 07/22/19 Clindamycin [Cleocin] 450 mg PO TID #90 capsule 01/20/20 Ibuprofen [Motrin] 600 mg PO Q6HR PRN #20 tab 07/07/20 Penicillin V Potassium [Pen Vee K] 500 mg PO QID #40 tablet 07/07/20 Allergies Allergy/AdvReac Type Severity Reaction Status Date / Time diphenhydramine HCl Allergy Intermediate Swelling Verified 07/07/20 13:03 [From Angelina] Review of Systems ROS Statement: Those systems with pertinent positive or pertinent negative responses have been documented in the HPI. ROS Other: All systems not noted in ROS Statement are negative. Constitutional: Denies: fever Eyes: Denies: eye pain ENT: Reports: dental pain. Denies: ear pain Respiratory: Denies: cough Cardiovascular: Denies: chest pain Endocrine: Denies: fatigue Gastrointestinal: Denies: abdominal pain Genitourinary: Denies: dysuria Musculoskeletal: Denies: back pain Skin: Denies: rash Neurological: Denies: weakness Past Medical History Past Medical History: No Reported History Additional Past Medical History / Comment(s): Cyst R ovary, hemangioma on tongue History of Any Multi-Drug Resistant Organisms: None Reported Additional Past Surgical History / Comment(s): Embolization 03/2012, and 5 other times for tongue hemangioma. Past Anesthesia/Blood Transfusion Reactions: No Reported Reaction Past Psychological History: No Psychological Hx Reported Smoking Status: Never smoker Past Alcohol Use History: None Reported Past Drug Use History: None Reported, Opiates - Past Family History Mother History Unknown: Yes Family Medical History: Cancer Additional Family Medical History / Comment(s): uterine cancer General Exam Limitations: no limitations General appearance: alert, in no apparent distress Head exam: Present: normocephalic Eye exam: Present: normal appearance ENT exam: Present: other (Poor dentition. Tenderness right lower second premolar and left lower third premolar which does have minimal swelling.) Neck exam: Present: normal inspection Respiratory exam: Present: normal lung sounds bilaterally Cardiovascular Exam: Present: regular rate, normal rhythm Neurological exam: Present: alert Psychiatric exam: Present: normal affect, normal mood Skin exam: Present: normal color Course Vital Signs 07/07/20 12:59 Temperature 98.8 F Pulse Rate 88 Respiratory 18 Rate Blood Pressure 106/63 O2 Sat by Pulse 99 Oximetry Disposition Clinical Impression: Dental abscess Disposition: HOME SELF-CARE Condition: Stable Instructions (If sedation given, give patient instructions): Toothache (ED), Dental Abscess (ED) Additional Instructions: Please follow-up with dentist and primary care physician in the next day or 2 for recheck. Return for increased swelling, fevers, difficulty breathing, not tolerating oral intake, worsening symptoms or any other concerns. [facility] Prescriptions: Ibuprofen [Motrin] 600 mg PO Q6HR PRN #20 tab PRN Reason: Pain Penicillin V Potassium [Pen Vee K] 500 mg PO QID #40 tablet Is patient prescribed a controlled substance at d/c from ED?: No Referrals: Stephanie Arcos NPC [Primary Care Provider] - 1-2 days Time of Disposition: 13:16
== END 2020-07-07 13:31 | disposition home or self-care (01) ==
LOC: EC 12:48
DX: K04.7 Periapical abscess without sinus (principal); K08.9 Disorder of teeth and supporting structures, unspecified; Z88.8 Allergy status to other drugs, medicaments and biological substances
CPT/HCPCS: 99282

== ENCOUNTER → 2020-12-28 | Outpatient (CLI) | payer OTHER | END | disposition home or self-care (01) | DX: R10.2 Pelvic and perineal pain (principal) | CPT/HCPCS: 76830; 76856 ==

== ENCOUNTER 2021-04-23 06:30 | Day surgery (SDC) | payer OTHER ==
[2021-04-22 08:41] VITALS: BMI 23.3
--- NOTE | 2021-04-22 16:24 | P.HPOB ---
History of Present Illness H&P Date: 04/22/21 Chief Complaint: Pelvic pain Deloris is a 36-year-old female with chronic pelvic pain. She relates that she has pain that is severe sharp and stabbing that it starts about 1-2 days prior to her menses and then continues through much of her menses. This is been going on now for approximately 8 months. The pain has not improved with nonsteroidal anti-inflammatories and based on symptomatology is consistent with endometriosis. She is scheduled for diagnostic laparoscopy possible ablation of endometrial implants. Risks/benefits/alternatives were reviewed with the patient in detail including but not limited to bleeding and infection, damage to bladder or bowel nerves vessels ureters potentially tubal injuries possible need for further surgery depending on what he might find. She is aware that if there is significant disease process we may only take pictures and send her to a specialist also place referral to a pelvic pain specialist was made prior to scheduling the surgery but she declined referral. Pain is predominantly located in the left lower quadrant and again is every month and is cyclic in nature. 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 Past Anesthesia/Blood Transfusion Reactions: No Reported Reaction Smoking Status: Never smoker - Past Family History Mother History Unknown: Yes Family Medical History: Cancer Additional Family Medical History / Comment(s): uterine cancer Father Family Medical History: Myocardial Infarction ([place]) Additional Family Medical History / Comment(s): [place] age 40 Medications and Allergies Home Medications Medication Instructions Recorded Confirmed Type Acetaminophen Tab [Tylenol Tab] 650 mg PO Q6H PRN 09/21/18 04/22/21 History HYDROcodone/APAP 7.5-325MG [[place]ana 1 tab PO DAILY PRN 04/22/21 04/22/21 History 7.5-325] Multivitamins, Thera [Multivitamin 1 tab PO DAILY 04/22/21 04/22/21 History (formulary)] Naproxen 250 mg PO DAILY 04/22/21 04/22/21 History Allergies Allergy/AdvReac Type Severity Reaction Status Date / Time diphenhydramine HCl Allergy Intermediate Swelling Verified 04/22/21 08:33 [From Benadryl] Exam Osteopathic Statement: *. No significant issues noted on an osteopathic structural exam other than those noted in the History and Physical/Consult. Intake and Output 04/22/21 04/22/21 04/22/21 06:59 14:59 22:59 Other: Weight 61.689 kg - OBG Physical Exam Breast: both: normal (no masses) Abdomen: bowel sounds normal, no diffuse tenderness, no bruit present, no guarding noted, no hepatomegaly, no splenomegaly, no mass Vulva: both: normal Vagina: normal moisture, no discharge Cervix: no lesion, no discharge Uterus: normal size, normal contour Adnexa: both: normal Anus/Rectum: normal perianal skin, no rectal mass, no hemorrhoids, heme negative
[~2021-04-23 06:30] MED LIST changes: -BUPIVACAINE (PF) 0.25% 30 ML VIAL SQ ONE; -DEXAMETHASONE SOD PHOSPHATE 10 MG/ML 1 ML VIAL IV ONE; +DEXAMETHASONE SOD PHOSPHATE 4 MG/ML 1 ML VIAL IV ONE; -GLYCOPYRROLATE 0.2 MG/ML 2 ML VIAL ONE; -HYDROcodone/APAP 5-325MG 1 EACH TAB PO ONE; -KETOROLAC 30 MG/ML 1 ML VIAL ONE; -LACTATED RINGERS 1,000 ML IV ONE; -LIDOCAINE 1% 20 ML VIAL (10MG/ML) FOR IV START INTRADERMA ONE; -LIDOCAINE 1% INJ 10MG/ML (20 ML MDV) ONE; -MIDAZOLAM 2 MG/2 ML VIAL ONE; -NEOSTIGMINE 1 MG/ML 10 ML VIAL ONE; -PROPOFOL 10 MG/ML 20 ML VIAL IV ONE; -ROCURONIUM BROMIDE 10 MG/ML 10 ML VIAL IV ONE; -SUCCINYLCHOLINE CHLORIDE 100 MG/5 ML SYR IV ONE; -fentaNYL (PF) 50 MCG/ML 2 ML AMP ONE
[2021-04-23] MEDS ORDERED: HYDROmorphone 0.5 MG/0.5 ML SYRINGE IVP PRN (07:00)
[2021-04-23] MEDS ORDERED: LIDOCAINE 1% (10MG/ML) FOR IV START INTRADERMA ONE (07:07)
[2021-04-23] MEDS ORDERED: ROCURONIUM 10 MG/ML (5 ML VIAL) IV ONE (07:37)
[2021-04-23] MEDS ORDERED: NEOSTIGMINE 1 MG/ML 10 ML VIAL ONE (07:37)
[2021-04-23] MEDS ORDERED: PROPOFOL 10 MG/ML 20 ML VIAL IV ONE (07:37)
[2021-04-23] MEDS ORDERED: fentaNYL (PF) 50 MCG/ML 2 ML AMP ONE (07:37)
[2021-04-23] MEDS ORDERED: GLYCOPYRROLATE 0.2 MG/ML 2 ML VIAL ONE (07:37)
[2021-04-23] MEDS ORDERED: LIDOCAINE 1% INJ 10MG/ML (20 ML MDV) ONE (07:37)
[2021-04-23] MEDS ORDERED: MIDAZOLAM 2 MG/2 ML VIAL ONE (07:37)
[2021-04-23] MEDS ORDERED: KETOROLAC 15 MG/ML 1 ML VIAL ONE (07:37)
[2021-04-23] MEDS ORDERED: ACETAMINOPHEN IV (For NPO) 1,000 MG/100 ML VIAL ONE (07:37)
[2021-04-23] MEDS ORDERED: BUPIVACAINE (PF) 0.25% 30 ML VIAL SQ ONE ×3 (08:04)
[2021-04-23 08:44] VITALS: TEMP 97
[2021-04-23 09:15] VITALS: RESP 20
--- NOTE | 2021-04-23 09:26 | P.OP ---
Date of Procedure: 04/23/21 Preoperative Diagnosis: Pelvic pain Postoperative Diagnosis: Same Procedure(s) Performed: Normal pelvic anatomy. Physical dislodged from left fallopian tube and removed from posterior cul-de-sac Anesthesia: LOY Surgeon: Mansoor Odell Estimated Blood Loss (ml): 3 IV fluids (ml): 500 Urine output (ml): 50 Pathology: none sent Condition: stable Disposition: same day Operative Findings: Normal pelvic anatomy. No evidence of endometriosis. Possible adenomyosis Description of Procedure: Patient states the operating suite where general anesthetic was found be adequate. She was prepped and draped in the normal sterile fashion and placed in the dorsal lithotomy position. Initially a weighted speculum was inserted in the vagina and the anterior lip of the cervix identified and grasped with single tooth tenaculum. Uterus is then sounded to 8 cm any uterine manipulator was inserted without difficulty. Other incidents were then removed and red rubber catheter was used to drain the bladder of urine. Gloves were then changed and attention was turned to the abdominal portion procedure where 3 mL a course of Marcaine was injected periumbilically. Through this injected anesthetic a 5 mm skin incision was made and through this incision, under direct visualization with an optical trocar and sleeve, the camera was inserted. Once peritoneal placement was assured gas was allowed to fully insufflate the abdomen and patient's placement steep Trendelenburg position. Second port and sleeve was then inserted through a 5 mm skin incision 3 cm above the pubic symphysis in the midline. Observations the pelvis were then noted. No gross pathology was noted. Appendix. Normal. No adhesions are noted. No endometriosis is noted. Somewhat boggy appearance of the uterus may represent adenomyosis. In lifting the uterus injected in the posterior cul-de-sac there was a Filshie clip actually in a small hernia posterior to the uterine body and it had become dislodged from her fallopian tube. It was grasped and removed without difficulty. All instruments were then removed and gas was allowed to expel from the abdomen. 5 deep breaths were provided during this process. 4-0 Vicryl was then used to close incision subcuticularly and another 6 mL of RK was injected around the incisions. Uterine manipulator was then removed without difficulty. Sponge, lap, needle counts were all correct 2. Patient was then taken to the recovery room in stable and satisfactory condition. Plan - Discharge Summary Discharge Rx Participant: No New Discharge Prescriptions: New HYDROcodone/APAP 5-325MG [[place] 5-325] 1 tab PO Q4HR PRN #20 tab PRN Reason: Pain No Action Acetaminophen Tab [Tylenol Tab] 650 mg PO Q6H PRN PRN Reason: Pain Multivitamins, Thera [Multivitamin (formulary)] 1 tab PO DAILY HYDROcodone/APAP 7.5-325MG [[place] 7.5-325] 1 tab PO DAILY PRN PRN Reason: Pain Naproxen 250 mg PO DAILY Discharge Medication List Acetaminophen Tab [Tylenol Tab] 650 mg PO Q6H PRN 09/21/18 [History] HYDROcodone/APAP 7.5-325MG [[place] 7.5-325] 1 tab PO DAILY PRN 04/22/21 [History] Multivitamins, Thera [Multivitamin (formulary)] 1 tab PO DAILY 04/22/21 [History] Naproxen 250 mg PO DAILY 04/22/21 [History] HYDROcodone/APAP 5-325MG [[place] 5-325] 1 tab PO Q4HR PRN #20 tab 04/23/21 [Rx] Follow up Appointment(s)/Referral(s): Mansoor Odell DO [Doctor of Osteopathic Medicine] - 1 Week Patient Instructions/Handouts: *Surgery [facility] - (Anesthesia) Discharge Instructions Outpatient Surgery, *Surgery [facility] - Laparoscopy Discharge Instructions Activity/Diet/Wound Care/Special Instructions: No heavy lifting, limit stairs and driving, and pelvic rest. If any high temperatures, heavy bleeding, or severe pain call my office
[2021-04-23 10:20] VITALS: BP 105/68; PULSE 70
== END 2021-04-23 10:35 | disposition home or self-care (01) ==
LOC: OR 06:30
PROVIDERS: ATTEND Obstetrics & Gynecology
DX: R10.2 Pelvic and perineal pain (principal)
CPT/HCPCS: 81025; 49320; J2250; J1100; J2710; J2405; J2001; J3010; J0131; J1885; J2704

== ENCOUNTER 2022-01-13 14:54 | Emergency (ER) | payer OTHER ==
[2022-01-13 15:16] VITALS: TEMP 98.2
[2022-01-13 16:17] VITALS: RESP 18
[2022-01-13] MEDS ORDERED: methocarbamoL 750 MG TAB PO STA (16:20)
[2022-01-13] MEDS ORDERED: KETOROLAC 15 MG/ML 1 ML VIAL IM STA (16:21)
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
[2022-01-13 18:11] VITALS: BP 99/56; PULSE 72
--- NOTE | 2022-01-13 18:13 | XR ---
EXAMINATION: XR chest 2V DATE AND TIME: 01/13/2022 5:44 PM CLINICAL INDICATION: Cough/pain TECHNIQUE: Departmental protocol COMPARISON: None FINDINGS: The lungs are clear. The pleural spaces are negative. The cardiac silhouette is not enlarged. The remainder of the mediastinal silhouette is unremarkable. The skeletal structures and soft tissues are negative for acute findings. IMPRESSION: NO ACUTE PROCESS.
== END 2022-01-13 18:21 | disposition home or self-care (01) ==
LOC: EC 14:54
DX: M54.2 Cervicalgia (principal); Z88.8 Allergy status to other drugs, medicaments and biological substances; Y92.488 Other paved roadways as the place of occurrence of the external cause; V48.0XXA Car driver injured in noncollision transport accident in nontraffic accident, initial encounter
CPT/HCPCS: 99284; 96372; 71046; 72128; 72125; 72131; 70450; J1885

== ENCOUNTER 2023-12-16 12:41 | Emergency (ER) | payer OTHER ==
--- NOTE | 2023-12-16 12:57 | ED ---
General Adult HPI - General Chief complaint: Abdominal Pain Stated complaint: Abd pain Time Seen by Provider: 12/16/23 12:49 Source: patient Mode of arrival: ambulatory Limitations: no limitations - History of Present Illness Initial comments: Dictation was produced using [employer] dictation software. please excuse any grammatical, word or spelling errors. Chief Complaint: 38-year-old female with umbilical pain History of Present Illness: Patient is 38-year-old female presents to the emergency department from urgent care. Patient was there for umbilical mass and pain for the last 1 to 2 days. She went to the urgent care and was told to come to the emergency department to get some imaging for concerns of umbilical hernia. Patient does not feel like the hernia is sticking out at this time. States that it feels like it comes out whenever she lays down or stands for prolonged period of times. Denies any nausea vomiting. Patient still passing gas and having bowel movements. The ROS documented in this emergency department record has been reviewed and confirmed by me. Those systems with pertinent positive or negative responses have been documented in the HPI. All other systems are other negative and/or noncontributory. - Related Data Home Medications Medication Instructions Recorded Confirmed HYDROcodone/APAP 7.5-325MG [Onward 1 tab PO BID 04/22/21 01/13/22 7.5-325] Naproxen [Naprosyn] 500 mg PO DAILY 01/13/22 01/13/22 Previous Rx's Medication Instructions Recorded methocarbamoL [Robaxin] 500 mg PO TID PRN #24 tab 01/13/22 Allergies Allergy/AdvReac Type Severity Reaction Status Date / Time diphenhydramine HCl Allergy Intermediate Swelling Verified 12/16/23 12:53 [From Benadryl] Review of Systems ROS Statement: Those systems with pertinent positive or pertinent negative responses have been documented in the HPI. ROS Other: All systems not noted in ROS Statement are negative. 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 Past Anesthesia/Blood Transfusion Reactions: No Reported Reaction Past Psychological History: No Psychological Hx Reported Smoking Status: Never smoker Past Alcohol Use History: None Reported Past Drug Use History: None Reported - Past Family History Mother History Unknown: Yes Family Medical History: Cancer Additional Family Medical History / Comment(s): uterine cancer Father Family Medical History: Myocardial Infarction ([place]) Additional Family Medical History / Comment(s): [place] age 40 General Exam - General Exam Comments Initial Comments: PHYSICAL EXAM: General Impression: Alert and oriented x3, not in acute distress HEENT: Normocephalic atraumatic, extra-ocular movements intact, pupils equal and reactive to light bilaterally, mucous membranes moist. Cardiovascular: Heart regular rate and rhythm Chest: Able to complete full sentences, no retractions, no tachypnea Abdomen: abdomen soft, non-tender, non-distended, no organomegaly, no palpable hernias to the periumbilical area or inguinal area, there does appear to be a palpatory defect in the umbilical area that measures approximately 1 to 2 cm, No inducible hernia with Valsalva Musculoskeletal: Pulses present and equal in all extremities, no peripheral edema Motor: no focal deficits noted Neurological: CN II-XII grossly intact, no focal motor or sensory deficits noted Skin: Intact with no visualized rashes Psych: Normal affect and mood Limitations: no limitations Course Vital Signs 12/16/23 12:50 Temperature 98.1 F Pulse Rate 88 Respiratory 18 Rate Blood Pressure 117/62 O2 Sat by Pulse 97 Oximetry Medical Decision Making - Medical Decision Making Was pt. sent in by a medical professional or institution (, PA, VOICE NETWORK ADMINISTRATOR, urgent care, hospital, or long term...) When possible be specific @ -No Did you speak to anyone other than the patient for history (EMS, parent, family, police, friend...)? What history was obtained from this source @ -No Did you review nursing and triage notes (agree or disagree)? Why? @ -I reviewed and agree with nursing and triage notes Were old charts reviewed (outside hosp., previous admission, EMS record, old EKG, old radiological studies, urgent care reports/EKG's, long term records)? Report findings @ -No old charts were reviewed Differential Diagnosis (chest pain, altered mental status, abdominal pain women, abdominal pain men, vaginal bleeding, musculoskeletal, weakness, fever, dyspnea, syncope, headache, dizziness, GI bleed, back pain, seizure, CVA, palpatations, mental health)? @ -Differential Abdominal Pain Women: Appendicitis, Cholecystitis, diverticulosis, ischemic bowel, pancreatitis, hepatitis, UTI, gastroenteritis, AAA, incarcerated hernia, bowel obstruction, constipation, inflammatory bowel, hepatitis, peptic ulcer disease, splenic infarction, perforated viscus, vulvitis, ovarian torsion, PID, kidney stone, placenta abruption, this is not meant to be an all-inclusive list EKG interpreted by me (3pts min.). @ -None done X-rays interpreted by me (1pt min.). @ -X-ray of the abdomen shows nonobstructive bowel gas pattern CT interpreted by me (1pt min.). @ -None done U/S interpreted by me (1pt. min.). @ -No obvious hernia What testing was considered but not performed or refused? (CT, X-rays, U/S, labs)? Why? @ -None What meds were considered but not given or refused? Why? @ -None Was smoking cessation discussed for >3mins.? @ -No Were there social determinants of health that impacted care today? How? (Homelessness, low income, unemployed, alcoholism, drug addiction, transportation, low edu. Level, literacy, decrease access to med. care, nursing home, rehab)? @ -No Was there de-escalation of care discussed even if they declined (Discuss DNR or withdrawal of care, Hospice)? DNR status @ -No What co-morbidities impacted this encounter? (DM, HTN, Smoking, COPD, CAD, Cancer, CVA, ARF, Chemo, Hep., AIDS, mental health diagnosis, sleep apnea, morbid obesity)? @ -None Was patient admitted / discharged? Hospital course, mention meds given and route, prescriptions, significant lab abnormalities, going to OR and other pertinent info. @ -38-year-old female presents to the emergency department for concerns of umbilical hernia. She presented to the emergency department after being re ferred to from urgent care. Vital signs stable. No palpable hernia on physical examination. Laboratory evaluation is unremarkable. Imaging studies do not suggest a hernia. Patient has a hernia however she does not have any obstruction or signs of incarceration or strangulation. Patient given outpatient referral to general surgery. Return precautions discussed. Did you discuss the management of the patient with other professionals (professionals i.e. , PA, VOICE NETWORK ADMINISTRATOR, lab, RT, psych nurse, addiction social worker, maintenance assistant, teacher, chief supply chain officer, case managers)? Give summary @ -No Was critical care preformed (if so, how long)? @ -No Undiagnosed new problem with uncertain prognosis? @ -No Drug Therapy requiring intensive monitoring for toxicity (Heparin, Nitro, Insulin, Cardizem)? @ -No Were any procedures done? @ -No Diagnosis/symptom? Acute, or Chronic, or Acute on Chronic? Uncomplicated (without systemic symptoms) or Complicated (systemic symptoms)? @ -ventral abdominal hernia Side effects of treatment? @ -No Exacerbation, Progression, or Severe Exacerbation? @ -No Poses a threat to life or bodily function? How? (Chest pain, [place], [place], pneumonia, PE, COPD, DKA, ARF, appy, cholecystitis, CVA, Diverticulitis, Homicidal, Suicidal, threat to staff... and all critical care pts) @ -No - Lab Data Result diagrams: 12/16/23 14:48 12/16/23 14:48 Lab Results 12/16/23 12/16/23 Range/Units 14:48 14:48 WBC 8.5 (3.8-10.6) k/uL RBC 4.75 (3.80-5.40) m/uL Hgb 14.5 (11.4-16.0) gm/dL Hct 44.2 (34.0-46.0) % MCV 93.0 (80.0-100.0) fL MCH 30.6 (25.0-35.0) pg MCHC 32.9 (31.0-37.0) g/dL RDW 12.0 (11.5-15.5) % Plt Count 210 (150-450) k/uL MPV 7.8 Neutrophils % 70 % Lymphocytes % 20 % Monocytes % 4 % Eosinophils % 4 % Basophils % 1 % Neutrophils # 5.9 (1.3-7.7) k/uL Lymphocytes # 1.7 (1.0-4.8) k/uL Monocytes # 0.4 (0-1.0) k/uL Eosinophils # 0.4 (0-0.7) k/uL Basophils # 0.0 (0-0.2) k/uL Sodium 138 (137-145) mmol/L Potassium 4.6 (3.5-5.1) mmol/L Chloride 107 (98-107) mmol/L Carbon Dioxide 27 (22-30) mmol/L Anion Gap 4 mmol/L BUN 10 (7-17) mg/dL Creatinine 0.62 (0.52-1.04) mg/dL Est GFR (CKD-EPI)AfAm >90 (>60 ml/min/1.73 sqM) Est GFR (CKD-EPI)NonAf >90 (>60 ml/min/1.73 sqM) Glucose 107 H (74-99) mg/dL Calcium 9.4 (8.4-10.2) mg/dL Total Bilirubin 0.4 (0.2-1.3) mg/dL AST 20 (14-36) U/L ALT 13 (4-34) U/L Alkaline Phosphatase 73 (38-126) U/L Total Protein 6.9 (6.3-8.2) g/dL Albumin 4.2 (3.5-5.0) g/dL Lipase 73 (23-300) U/L Disposition Clinical Impression: Abdominal wall hernia Disposition: HOME SELF-CARE Condition: Fair Instructions (If sedation given, give patient instructions): Ventral Hernia (ED) Is patient prescribed a controlled substance at d/c from ED?: No Referrals: Vince Gabriel MD [STAFF PHYSICIAN] - 1-2 days Albina Dozier MD [STAFF PHYSICIAN] - 1-2 days Geovanny Nunez MD [Medical Doctor] - 1-2 days Time of Disposition: 15:26
--- NOTE | 2023-12-16 13:56 | US ---
EXAMINATION TYPE: US abdomen limited DATE OF EXAM: 12/16/2023 COMPARISON: NONE CLINICAL INDICATION: Female, 38 years old with history of umbilical pain, hernia?; umbilical pain for 2 days Assess for hernia at location of: umbilicus No apparent changes with valsalva, unable to visualize a break in abdominal wall by ultrasound at thi s time. IMPRESSION: 1. No obvious anterior abdominal wall hernia. If additional workup is required, CT could be performed . Real-time scanning was performed by the veneer sander utilizing Valsalva and additional dynamic maneuve rs to assess for hernia.
--- NOTE | 2023-12-16 15:04 | XR ---
EXAMINATION TYPE: XR abdomen 1V DATE OF EXAM: 12/16/2023 COMPARISON: NONE HISTORY: Pain TECHNIQUE: Single supine KUB image of the abdomen is obtained FINDINGS: Small bowel demonstrates no evidence for dilatation or air fluid levels. Gas and fecal material is seen in non-distended colon. No convincing evidence for pneumoperitoneum. No unusual calcifications. The lung bases are clear. The osseous structures are intact. IMPRESSION: 1. Overall nonobstructive bowel gas pattern.
[2023-12-16 15:05] LABS: Basophils % (A) 1 %; Eosinophils # (A) 0.4 k/uL (0-0.7); Eosinophils % (A) 4 %; HCT 44.2 % (34.0-46.0); HGB 14.5 gm/dL (11.4-16.0); Lymphocytes # (A) 1.7 k/uL (1.0-4.8); Lymphocytes % (A) 20 %; MCH 30.6 pg (25.0-35.0); MCHC 32.9 g/dL (31.0-37.0); Mean Platelet Volume 7.8; Monocytes # (A) 0.4 k/uL (0-1.0); Monocytes % (A) 4 %; Neutrophils # (A) 5.9 k/uL (1.3-7.7); Neutrophils % (A) 70 %; Platelet Count 210 k/uL (150-450); RBC 4.75 m/uL (3.80-5.40); WBC 8.5 k/uL (3.8-10.6)
[2023-12-16 15:18] LABS: ALT 13 U/L (4-34); AST 20 U/L (14-36); African American GFR (CKD) >90 (>60 ml/min/1.73 sqM); Albumin 4.2 g/dL (3.5-5.0); Alkaline Phosphatase 73 U/L (38-126); Anion Gap 4 mmol/L; Blood Urea Nitrogen 10 mg/dL (7-17); Calcium 9.4 mg/dL (8.4-10.2); Carbon Dioxide 27 mmol/L (22-30); Chloride 107 mmol/L (98-107); Glucose 107 mg/dL (74-99); Lipase 73 U/L (23-300); Non-African American GFR(CKD) >90 (>60 ml/min/1.73 sqM); Potassium 4.6 mmol/L (3.5-5.1); Sodium 138 mmol/L (137-145); Total Bilirubin 0.4 mg/dL (0.2-1.3); Total Protein 6.9 g/dL (6.3-8.2)
[2023-12-16 15:51] VITALS: BP 116/75; PULSE 86; RESP 22; TEMP 98
== END 2023-12-16 15:50 | disposition home or self-care (01) ==
LOC: EC 12:41
DX: K43.9 Ventral hernia without obstruction or gangrene (principal); Z88.8 Allergy status to other drugs, medicaments and biological substances
CPT/HCPCS: 36415; 74018; 76705; 80053; 83690; 85025; 99284